=== PATIENT | male | born 1990 | race Caucasian/White ===

== ENCOUNTER 2020-05-06 18:54 | Emergency (ER) | payer BC ==
[2020-05-06] MEDS ORDERED: ACETAMINOPHEN 325 MG TABLET PO ONE (19:02)
--- NOTE | 2020-05-06 19:09 | ER Document Report ---
ED Medical Screen (RME) - General Chief Complaint: Back Pain Stated Complaint: BACK PAIN Time Seen by Provider: 05/06/20 18:56 Mode of Arrival: Wheelchair Information source: Patient Notes: 29-year-old male presented to ED for complaint left scapular pain. He states the scapular pain started last night. He states about an hour ago he started coughing and coughed up a small amount of blood. He states he did have a fractured clavicle on the same side on 04/17/2020. Past medical history is a fractured clavicle and appendectomy. He states he has not had any alcohol to drink in the last 2 weeks. He used to drink once or twice a week but quit. He does not use any cigarettes or drugs. 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 He states it is very painful to take a deep breath due to the pain. I have greeted and performed a rapid initial assessment of this patient. A comprehensive ED assessment and evaluation of the patient, analysis of test results and completion of medical decision making process will be conducted by an additional ED providers.
[2020-05-06 19:34] LABS: ABSOLUTE EOSINOPHILS # (AUTO) 0.1 10^3/uL (0.0-0.6); ABSOLUTE LYMPHOCYTES (AUTO) 1.5 10^3/uL (0.5-4.7); ABSOLUTE MONOCYTES (AUTO) 0.8 10^3/uL (0.1-1.4); ABSOLUTE NEUT (AUTO) 7.8 10^3/uL (1.7-8.2); BASOPHILS % (AUTO) 0.4 % (0-2); EOSINOPHILS % (AUTO) 0.6 % (0-6); HEMATOCRIT 44.3 % (37.9-51.0); HEMOGLOBIN 15.6 g/dL (13.5-17.0); MEAN CORPUSCULAR HEMOGLOBIN 31.7 pg (27.0-33.4); MEAN CORPUSCULAR HGB CONC 35.3 g/dL (32.0-36.0); MEAN CORPUSCULAR VOLUME 90 fl (80-97); PLATELET COUNT 300 10^3/uL (150-450); RED BLOOD COUNT 4.94 10^6/uL (4.35-5.55); RED CELL DISTRIBUTION WIDTH 12.4 % (11.5-14.0); TOTAL CELLS COUNTED % (AUTO) 100 %; WHITE BLOOD COUNT 10.3 10^3/uL (4.0-10.5)
--- NOTE | 2020-05-06 19:54 | RADIOLOGY REPORT (SQ) ---
EXAM DESCRIPTION: CHEST 2 VIEWS IMAGES COMPLETED DATE/TIME: 05/06/2020 7:21 pm REASON FOR STUDY: Left scapular and back pain short of breath COMPARISON: None. EXAM PARAMETERS: NUMBER OF VIEWS: two views TECHNIQUE: Digital Frontal and Lateral radiographic views of the chest acquired. RADIATION DOSE: NA LIMITATIONS: none FINDINGS: LUNGS AND PLEURA: Patchy airspace disease in the left retrocardiac region worrisome for ea rly or developing pneumonia. Lungs are otherwise clear. No pleural no pneumothorax. MEDIASTINUM AND HILAR STRUCTURES: No masses or contour abnormalities. HEART AND VASCULAR STRUCTURES: Heart normal size. No evidence for failure. BONES: No acute findings. HARDWARE: None in the chest. OTHER: No other significant finding. IMPRESSION: Left basilar airspace disease TECHNICAL DOCUMENTATION: JOB ID: [id number] 2010 [employer]- All Rights Reserved Reading location - IP/workstation name: [id number]
[2020-05-06 19:56] LABS: ALBUMIN 4.6 g/dL (3.5-5.0); ALKALINE PHOSPHATASE 98 U/L (38-126); ANION GAP 9 (5-19); ASPARTATE AMINO TRANSFERASE 25 U/L (17-59); BILIRUBIN,DIRECT 0.3 mg/dL (0.0-0.4); BILIRUBIN,TOTAL 1.5 mg/dL (0.2-1.3); BLOOD UREA NITROGEN 14 mg/dL (7-20); CALCIUM 9.6 mg/dL (8.4-10.2); CARBON DIOXIDE 28 mmol/L (22-30); CHLORIDE 103 mmol/L (98-107); GLUCOSE 111 mg/dL (75-110); POTASSIUM 4.4 mmol/L (3.6-5.0); TOTAL PROTEIN 7.4 g/dL (6.3-8.2)
[2020-05-06] MEDS ORDERED: AZITHROMYCIN 250 MG TABLET PO ONE (23:57)
--- NOTE | 2020-05-07 00:05 | ER Document Report ---
ED Respiratory Problem - General Chief Complaint: Shortness Of Breath Stated Complaint: BACK PAIN Time Seen by Provider: 05/06/20 18:56 Primary Care Provider: [facility] [Provider Group] - Follow up as needed [facility] [Provider Group] - Follow up as needed DELONTE HUGHES MD [ACTIVE STAFF] - Follow up as needed Mode of Arrival: Wheelchair Notes: 29-year-old male presented to ED for complaint left scapular pain. He states the scapular pain started last night. He states about an hour ago he started coughing and coughed up a small amount of blood. He states he did have a fractured clavicle on the same side on 04/17/2020. Past medical history is a fractured clavicle and appendectomy. He states he has not had any alcohol to drink in the last 2 weeks. He used to drink once or twice a week but quit. He does not use any cigarettes or drugs. 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 He states it is very painful to take a deep breath due to the pain. REVIEW OF SYSTEMS: CONSTITUTIONAL : Denies fever, chills, or sweats. Denies recent illness. EENT: Denies eye, ear, throat, or mouth pain or symptoms. Denies nasal or sinus congestion. CARDIOVASCULAR: Denies chest pain. RESPIRATORY: Cough short of breath coughed up small amounts of blood and left scapular pain recent left clavicle fracture MUSCULOSKELETAL: Left scapula and clavicle pain with some shortness of breath when taking deep breaths ALL OTHER SYSTEMS REVIEWED AND NEGATIVE. VITAL SIGNS: Within normal limits. GENERAL: No acute distress, non-toxic appearance. HEAD: Normal with no signs of head trauma. EYES: PERRLA, EOMI, conjunctiva normal, no discharge. EARS: Hearing grossly intact. NOSE: Normal. THROAT: Oropharynx is normal. NECK: Left scapular tenderness mild deformity noted on left clavicle CHEST: Clear breath sounds bilaterally. Diminished breath sounds due to not taking deep breaths CARDIAC: Tender to palpation at left clavicle MUSCULOSKELETAL: Pain with any range of motion to the left shoulder NEUROLOGICAL: Alert and oriented x 3. No focal sensory or strength deficits. Speech normal. Follows commands appropriately. PSYCHIATRIC: Normal Affect, judgement and mood. SKIN: Normal appearance with no rashes or lesions. - HPI Patient complains to provider of: Cough, Short of breath, Other - Scapular and clavicle pain Onset: Other - States scapular pain started last night the cough and coughing up blood started about an hour before coming to the emergency room Duration: Intermittent episodes Initiating Event: Other - Recent fractured clavicle Quality of pain: Achy Severity: Mild Pain Level: 2 Context: Other - Recent fractured clavicle Short of Breath: Mild Cough: Productive Sputum amount: Small Sputum color: Red (blood) - States that had some blood in it x1 Associated symptoms: Short of breath, Other - Left clavicular and scapular pain worse with deep breath or movement Similar symptoms previously: No Recently seen / treated by doctor: Yes - Related Data Allergies/Adverse Reactions: cefaclor [From Ceclor] Allergy (Verified 05/06/20 19:05) Past Medical History - General Information source: Patient - Social History Smoking Status: Never Smoker Chew tobacco use (# tins/day): Yes Frequency of alcohol use: None Drug Abuse: None Lives with: Family Family History: Reviewed & Not Pertinent Patient has suicidal ideation: No Patient has homicidal ideation: No - Past Medical History Cardiac Medical History: Reports: None Pulmonary Medical History: Reports: Hx Pneumonia - 05/06/2020 EENT Medical History: Reports: None Neurological Medical History: Reports: None Endocrine Medical History: Reports: None Renal/ Medical History: Reports: None Malignancy Medical History: Reports None GI Medical History: Reports: None Musculoskeletal Medical History: Reports Hx Musculoskeletal Trauma - Left clavicular fracture Skin Medical History: Reports None Psychiatric Medical History: Reports: None Traumatic Medical History: Reports: Hx Fractures - Left clavicle Infectious Medical History: Reports: None Past Surgical History: Reports: Hx Appendectomy - Immunizations Immunizations up to date: Yes Physical Exam - Vital signs Vitals: Temp Pulse Resp BP Pulse Ox 98.5 F 110 H 26 H 130/77 H 95 05/06/20 19:04 05/06/20 19:04 05/06/20 19:04 05/06/20 19:04 05/06/20 19:04 Course - Re-evaluation Re-evalutation: 05/07/20 00:06 Discussed x-ray and history with Dr. benton. He stated that I should put him on Zithromax since that she was allergic to Ceclor. We did discuss other antibiotics also. Patient was given instructions on incentive spirometry and his antibiotics. He was instructed that he needed to do deep breathing and coughing frequently at least every hour. He was instructed to please follow-up with his primary care doctor and if he did not have one I given him a couple names that he can follow-up with. Patient did verbalize understanding and agreement with treatment plan and he was discharged home. - Vital Signs Vital signs: Temp Pulse Resp BP Pulse Ox 97.6 F 85 20 116/64 98 05/07/20 00:09 05/07/20 00:09 05/07/20 00:09 05/07/20 00:09 05/07/20 00:09 - Laboratory Result Diagrams: 05/06/20 19:23 05/06/20 19:23 Laboratory results interpreted by me: 05/06/20 19:23 Glucose 111 H Total Bilirubin 1.5 H - Diagnostic Test Radiology reviewed: Image reviewed, Reports reviewed Discharge - Discharge Clinical Impression: left basilar pneumonia Condition: Stable Disposition: HOME, SELF-CARE Additional Instructions: PNEUMONIA: Your examination indicates that you have pneumonia. This is an infection of the lung tissue, usually caused by bacteria or a virus. Symptoms include cough, fever, shaking chills, chest pain, shortness of breath, and coughing up bloody sputum. Treatment for bacterial pneumonia includes rest, antibiotics for 10 to 14 days, increasing your clear liquid intake, a cool mist humidifier at your bedside, and fever medication. Often, a repeat chest X-ray is performed in a few weeks--even if you feel better--to ascertain whether the infection has completely resolved and no underlying lung problem is present. You should call the physician if you develop persistent vomiting, high fever that does not respond to fever medication, increasing shortness of breath, confusion, or lethargy. Also, failure to improve within two to three days is an indication for re-examination. AZITHROMYCIN: Azithromycin (Zithromax) is a broad spectrum antibiotic in the same class as erythromycin. It can treat a variety of bacterial infections, but is most frequently used for respiratory infections. Azithromycin is extremely long-lasting. It accumulates in body tissues and continues to kill bacteria for many days. In order to improve absorption, Azithromycin should be taken at least one hour before or two hours after a meal. It does not have the same strong tendency to upset the stomach as erythromycin and is usually very well tolerated. Patients who have had a rash or other true allergic reactions to erythromycin should not take this medication. Call if you develop gastrointestinal distress, severe diarrhea, rash, hives, itching, or shortness of breath. USE OF ACETAMINOPHEN (Tylenol): Acetaminophen may be taken for pain relief or fever control. It's much safer than aspirin, offering a wider range of "safe" dosages. It is safe during . Some brand names are Tylenol, Panadol, Datril, Anacin 3, Tempra, and Liquiprin. Acetaminophen can be repeated every four hours. The following are maximum recommended dosages: WEIGHT Dose Drops Elixir Chewable(80mg) (LBS.) drprs=droppers tsp=teaspoon 6 40 mg 0.4 ml (1/2) 6-11 80 mg 0.8 ml (full) tsp 1 tab 12-16 120 mg 1 1/2 drprs 3/4 tsp 1 1/2 tabs 17-23 160 mg 2 drprs 1 tsp 2 tabs 24-30 240 mg 3 drprs 1 1/2 tsp 3 tabs 30-35 320 mg 2 tsp 4 tabs 36-41 360 mg 2 1/4 tsp 4 1/2 tabs 42-47 400 mg 2 1/2 tsp 5 tabs 48-53 480 mg 3 tsp 6 tabs 54-59 520 mg 3 1/4 tsp 6 1/2 tabs 60-64 560 mg 3 1/2 tsp 7 tabs 65-70 600 mg 3 3/4 tsp 7 1/2 tabs 71-76 640 mg 4 tsp 8 tabs 77-82 720 mg 4 1/2 tsp 9 tabs 83-88 800 mg 5 tsp 10 tabs >89 pounds or adults 650 mg to 900 mg Acetaminophen can be repeated every four hours. Maximum dose not to exceed 4000 mg a day. These maximum recommended dosages are slightly higher than the dosages written on the product container, but these dosages are very safe and below the toxic dosage for acetaminophen. Ibuprofen Ibuprofen is an excellent, safe drug for pain control. In addition, it has potent antiinflammatory effects which are beneficial, especially in the treatment of injuries, arthritis, or tendonitis. It's best to take ibuprofen with food. Persons with ulcer disease or allergy to aspirin should notify their physician of this before taking ibuprofen. Take the medication exactly as prescribed. Don't take additional doses unless instructed to do so by your doctor. If you develop wheezing, shortness of breath, hives, faintness, stomach pain, vomiting, or dark black stools, return for re-evaluation at once. Please use the incentive spirometer as you have been instructed tonight. Please use it 10 times every hour while awake. You need to exercise your lung to prevent worsening of your pneumonia. FOLLOW-UP CARE: If you have been referred to a physician for follow-up care, call the physici ans office for an appointment as you were instructed or within the next two days. If you experience worsening or a significant change in your symptoms, notify the physician immediately or return to the Emergency Department at any time for re-evaluation. Follow-up with your primary care doctor on Saturday and also call your administration specialist and let him know that you have pneumonia. Please do exercises as you have been instructed by your administration specialist. Prescriptions: Azithromycin [Zithromax] 250 mg PO DAILY #4 tablet Forms: Return to Work Referrals: [facility] [Provider Group] - Follow up as needed [facility] [Provider Group] - Follow up as needed DELONTE HUGHES MD [ACTIVE STAFF] - Follow up as needed
[2020-05-07 00:23] VITALS: BP 116/64
== END 2020-05-07 00:10 | disposition home or self-care (01) ==
LOC: ER 18:54
DX: J18.9 Pneumonia, unspecified organism (principal); M89.8X1 Other specified disorders of bone, shoulder; R04.2 Hemoptysis; R07.1 Chest pain on breathing; R06.02 Shortness of breath; Z72.0 Tobacco use; Z88.1 Allergy status to other antibiotic agents
CPT/HCPCS: 36415; 71046; 80053; 85025; 99284